=== PATIENT | male | born 1975 | race Caucasian/White ===

== ENCOUNTER 2019-10-13 18:10 | Emergency (ER) | payer OTHER ==
[~2019-10-13] VITALS: Ht 177.8 cm; Wt 81.2 kg
[2019-10-13] MEDS ORDERED: BENADRYL25 M2 PO (20:02)
[2019-10-13] MEDS ORDERED: PEPCID20 MG PO (20:02)
[2019-10-13] MEDS ORDERED: PREDNISONE20 M1 PO (20:02)
== END 2019-10-13 20:15 | disposition home or self-care (01) ==
LOC: ED 18:10
DX: L50.0 Allergic urticaria (principal); T39.315A Adverse effect of propionic acid derivatives, initial encounter; Y92.89 Other specified places as the place of occurrence of the external cause; R19.7 Diarrhea, unspecified; R10.9 Unspecified abdominal pain; I48.91 Unspecified atrial fibrillation; I10 Essential (primary) hypertension; Z88.8 Allergy status to other drugs, medicaments and biological substances